=== PATIENT | female | born 1995 | race Two or more races ===

== ENCOUNTER 2023-01-21 00:02 | Emergency (ER) | payer OTHER ==
[~2023-01-21] VITALS: Ht 157.5 cm; Wt 86.2 kg
[2023-01-21] MEDS ORDERED: PEPCID AC20 MG PO (03:51)
== END 2023-01-21 04:08 | disposition home or self-care (01) ==
LOC: ER 00:02
DX: R19.7 Diarrhea, unspecified (principal)